=== PATIENT | female | born 1975 | race Caucasian/White ===

== ENCOUNTER → 2017-03-19 | Outpatient (REF) ==
[~2017-03-19] MED LIST: AFRIN 15 ML15 ML NS; ALLEGRA-D 12 HO1 TER PO; HCTZ PO; PREDNISONE20 MG PO; ZITHROMAX 250M250 MG PO; rhinocort
== END ==
LOC: WSOH 11:34
DX: Z02.89 Encounter for other administrative examinations (principal)

== ENCOUNTER → 2017-04-15 | Outpatient (REF) | LOC: WSOH 12:00 | DX: Z02.89 Encounter for other administrative examinations (principal) ==

== ENCOUNTER → 2017-10-05 | Outpatient (CLI) | payer OTHER | LOC: MC.RAD 10:25 | DX: N63.21 Unspecified lump in the left breast, upper outer quadrant (principal); N64.4 Mastodynia ==